=== PATIENT | male | born 1965 | race Caucasian/White ===

== ENCOUNTER 2017-05-24 14:57 | Emergency (ER) | payer BC ==
[~2017-05-24] VITALS: Ht 175.3 cm; Wt 118.0 kg
[~2017-05-24 14:57] MED LIST: NAPROXEN500 MG PO; VALIUM2 MG PO
[2017-05-24] MEDS ORDERED: VIGAMOX 0.60 DROP/3 RIGHT EYE (18:04)
[2017-05-24] MEDS ORDERED: MOTRIN800 MG PO (18:06)
[2017-05-24 18:24] VITALS: BP 121/89
== END 2017-05-24 18:25 | disposition home or self-care (01) ==
LOC: EME 14:57 → RME 14:57
PROC: 08CSXZZ Extirpation of Matter from Right Conjunctiva, External Approach (ICD-10-PCS; principal; 2017-05-24)
DX: T15.11XA Foreign body in conjunctival sac, right eye, initial encounter (principal); W22.8XXA Striking against or struck by other objects, initial encounter; J44.9 Chronic obstructive pulmonary disease, unspecified; Z87.891 Personal history of nicotine dependence
CPT/HCPCS: 99281; 99284